=== PATIENT | male | born 1960 | race Caucasian/White ===

== ENCOUNTER → 2016-05-30 | Outpatient (CLI) | payer OTHER ==
[~2016-05-30] MED LIST: CLON0.5T3 PO; LEVO50TA6 PO; MULT-506 PO
== END | disposition home or self-care (01) ==
LOC: C.LAB 09:52
PROVIDERS: ATTEND Internal Medicine
DX: E03.9 Hypothyroidism, unspecified (principal)

== ENCOUNTER → 2016-06-23 | Outpatient (CLI) | payer OTHER ==
--- NOTE | 2016-06-23 07:51 | DIAGNOSTIC IMAGING REPORT ---
THYROID ULTRASONOGRAPHY CLINICAL HISTORY: Abnormal thyroid examination COMPARISON STUDY: No previous studies for comparison. FINDINGS: The right lobe of the thyroid measures 50 x 14 x 14 mm. The left lobe measures 50 x 13 x 14 mm. No focal thyroid masses are visualized. Both lobes are heterogeneous in echotexture, and hypervascular. IMPRESSION: Heterogeneous thyroid echotexture with hypervascularity. The findings are consistent with a thyroiditis. No focal masses are evident Electronically signed by: Ernesto Comer M.D. 06/23/2016 7:50 AM Dictated Date/Time: 06/23/2016 7:49 AM
== END | disposition home or self-care (01) ==
LOC: C.ULTR 07:09
PROVIDERS: ATTEND Internal Medicine
DX: R94.6 Abnormal results of thyroid function studies (principal)

== ENCOUNTER → 2016-07-14 | Outpatient (CLI) | payer OTHER ==
--- NOTE | 2016-07-14 08:07 | DIAGNOSTIC IMAGING REPORT ---
(BARIUM SWALLOW) ESOPHAGUS CLINICAL HISTORY: R13.10 [id number] COMPARISON STUDY: None FLUOROSCOPY TIME: 120 minutes. FINDINGS: Patient initiated swallowing function well. There is no evidence for aspiration or neuromuscular dysfunction. Esophagus is normal in course and caliber. Gastroesophageal junction is normal. Barium tablet passes to the stomach easily IMPRESSION: Normal study Electronically signed by: Wilberto Cortez M.D. 07/14/2016 8:05 AM Dictated Date/Time: 07/14/2016 8:04 AM
== END | disposition home or self-care (01) ==
LOC: C.RAD 07:32
PROVIDERS: ATTEND Surgery
DX: R13.10 Dysphagia, unspecified (principal)

== ENCOUNTER 2016-12-25 14:37 | Emergency (ER) | payer OTHER ==
[~2016-12-25] VITALS: Ht 180.3 cm; Wt 76.9 kg
[~2016-12-25 14:37] MED LIST changes: -LEVO50TA6 PO; -MULT-506 PO
[2016-12-25 14:43] VITALS: BP 141/94; PULSE 72; TEMP 36.6; O2SAT 97; Ht 180.3 cm; Wt 76.9 kg
[2016-12-25] MEDS ORDERED: IBUPROFEN 600 MG TAB PO STA (14:51)
--- NOTE | 2016-12-25 14:58 | EMERGENCY ROOM VISIT NOTE ---
ED Visit Note First contact with patient: 14:46 CHIEF COMPLAINT: Arm injury HISTORY OF PRESENT ILLNESS: This 56-year-old male patient was struck in the right forearm by an extension ladder. This occurred at approximately 2 PM today. He states he was putting up an extension ladder and had his arm between the rungs, the rope broke and the ladder collapsed, pinching his right arm between 2 rungs. Immediate pain developed in the arm. There is no numbness or tingling of the hand or weakness of the fingers. The pain is constant and moderate in severity. He applied ice, but has not taken any medications. He is right-hand dominant. REVIEW OF SYSTEMS: A complete 6 point review of systems was reviewed with the patient with pertinent positives and negatives as per history of present illness. All else were negative. PMH: The patient is healthy; there is no significant medical or surgical history. SOCIAL HISTORY: Patient lives at home. PHYSICAL EXAM: Vital Signs: Reviewed Nurse's notes. There is swelling and tenderness of the right mid-forearm. There is no deformity. The skin is intact. Flexion and extension of the fingers is intact. Full range of motion of the wrist and elbow joints without any pain. Sensation is intact on the dorsum of the forearm and hand. The fingers are warm and well perfused. +2 radial pulse. EMERGENCY DEPARTMENT COURSE: I examined the patient. Differential diagnosis includes contusion, muscular sprain/strain, fracture. An X-ray of the right forearm does not show any fractures, only mild soft tissue swelling. Patient was updated on results and plan for discharge, he will follow up with his PCP as needed. Patient was discharged home in stable condition and ambulatory. Current/Historical Medications Scheduled Clonazepam (Klonopin), 0.5 MG PO BID Levothyroxine Sodium (Levothyroxine Sodium), 50 MCG PO DAILY Multivitamin (Multivitamin), 1 TAB PO DAILY Allergies Coded Allergies: No Known Allergies (Unverified , 12/25/16) Vital Signs Date Time Temp Pulse Resp B/P (MAP) Pulse Ox O2 Delivery O2 Flow Rate FiO2 12/25/16 14:43 36.6 72 18 141/94 97 Room Air Medications Administered Medications (Trade) Dose Ordered Sig/Delmi Route Start Time Stop Time Status Last Admin Dose Admin Ibuprofen (Motrin Tab) 600 mg NOW STAT PO 12/25/16 14:51 12/25/16 14:52 DC 12/25/16 15:03 600 MG Departure Information Impression Primary Impression: Contusion of right arm Dispostion Home / Self-Care Condition GOOD Referrals Stephie Ibarra M.D. (PCP) Patient Instructions ED Contusion Upper Ext, My [facility] Additional Instructions Rest the arm for the next few days. Apply ice to the swollen area frequently over the next 2 days. Ibuprofen 600 mg every 6-8 hours if needed for pain. Follow up with your PCP if your pain is not improved after 4-5 days, or sooner for any worsening symptoms. Problem Qualifiers Primary Impression: Contusion of right arm Encounter type: initial encounter Qualified Codes: S40.021A - Contusion of right upper arm, initial encounter
[2016-12-25] MEDS ORDERED: MULT-506 PO (15:05)
[2016-12-25] MEDS ORDERED: LEVO50TA6 PO (15:05)
--- NOTE | 2016-12-25 15:05 | DIAGNOSTIC IMAGING REPORT ---
RIGHT FOREARM 2 VIEWS ROUTINE CLINICAL HISTORY: 56 years-old Male presenting with INJURY Right. TECHNIQUE: Frontal and lateral views of the right forearm were obtained. COMPARISON: None. FINDINGS: Elbow joint and radiocarpal articulations intact. No acute fracture or malalignment. Regional soft tissues normal. IMPRESSION: No acute osseous injury of the right forearm. Electronically signed by: Jj Duque M.D. 12/25/2016 3:04 PM Dictated Date/Time: 12/25/2016 3:03 PM
== END 2016-12-25 15:38 | disposition home or self-care (01) ==
LOC: C.EDB 14:38 → C.EDD 15:38
DX: S50.11XA Contusion of right forearm, initial encounter (principal); W23.0XXA Caught, crushed, jammed, or pinched between moving objects, initial encounter

== ENCOUNTER → 2017-04-08 | Outpatient (CLI) | payer OTHER ==
[~2017-04-08] MED LIST changes: +LEVO50TA6 PO; +MULT-506 PO
== END | disposition home or self-care (01) ==
LOC: C.LAB1850 15:10
PROVIDERS: ATTEND Internal Medicine
DX: E03.9 Hypothyroidism, unspecified (principal)

== ENCOUNTER → 2017-09-10 | Outpatient (CLI) | payer BC ==
[2017-09-10 07:30] LABS: BASO % 1.2 %; BASO ABS # 0.05 K/uL (0-0.2); EOS % 10.5 %; EOS ABS # 0.43 K/uL (0-0.5); HEMATOCRIT 45.6 % (42-52); HEMOGLOBIN 16.2 g/dL (14.0-18.0); IG# 0.01 K/uL (0.00-0.02); LYMPH % 31.9 %; LYMPH ABS # 1.31 K/uL (1.2-3.4); MEAN CELL VOLUME 91.8 fL (80-100); MEAN CORPUSCULAR HEMOGLOBIN 32.6 pg (25-34); MEAN CORPUSCULAR HGB CONC 35.5 g/dl (32-36); MEAN PLATELET VOLUME 10.3 fL (7.4-10.4); MONO % 10.2 %; MONO ABS # 0.42 K/uL (0.11-0.59); NEUT ABS # 1.89 K/uL (1.4-6.5); PLATELET COUNT 174 K/uL (130-400); RED CELL DISTRIBUTION WIDTH SD 40.3 fL (36.4-46.3); WHITE BLOOD COUNT 4.11 K/uL (4.8-10.8)
[2017-09-10 07:58] LABS: ALBUMIN 3.9 gm/dl (3.4-5.0); ALT/SGPT 31 U/L (12-78); AST/SGOT 23 U/L (15-37); BLOOD UREA NITROGEN 22 mg/dl (7-18); CALCIUM 8.5 mg/dl (8.5-10.1); CARBON DIOXIDE 29 mmol/L (21-32); CREATININE 1.26 mg/dl (0.60-1.40); GLUCOSE 97 mg/dl (70-99); POTASSIUM 3.9 mmol/L (3.5-5.1); SODIUM 142 mmol/L (136-145)
[2017-09-10 08:09] LABS: ALKALINE PHOSPHATASE 74 U/L (45-117); CHOLESTEROL 163 mg/dl (0-200); LDL CHOLESTEROL CALCULATED 92 mg/dl; TOTAL PROTEIN 7.1 gm/dl (6.4-8.2)
== END | disposition home or self-care (01) ==
LOC: C.LAB 07:09
PROVIDERS: ATTEND Internal Medicine
DX: Z00.00 Encounter for general adult medical examination without abnormal findings (principal); D72.819 Decreased white blood cell count, unspecified; Z12.5 Encounter for screening for malignant neoplasm of prostate; R53.83 Other fatigue; E03.9 Hypothyroidism, unspecified